=== PATIENT | male | born 1940 | race Caucasian/White ===

== ENCOUNTER 2017-11-18 02:57 | Inpatient (IN) | payer OTHER, MEDICARE ==
[~2017-11-18] VITALS: Ht 175.3 cm; Wt 109.0 kg
[2017-11-18] VITALS (9 sets, daily range): BP systolic 100–139; BP diastolic 57–69; PULSE 68–83; RESP 17–22; TEMP 98.2–98.5; O2SAT 86–97
[~2017-11-18 02:57] MED LIST: AMLO10; ASPI81; B COTAB3; CENTTAB9; PROZ20CA11
[2017-11-18] MEDS ORDERED: SODIUM CHLORIDE 0.9% FLUSH 10 ML FLUSH IV FLUSH PRN ×2 (03:15→06:30)
[2017-11-18] MEDS ORDERED: ONDANSETRON HCL 4 MG/2 ML VIAL IVP ONE (03:15)
[2017-11-18] MEDS ORDERED: FLUO1TAB3 PO (03:17)
[2017-11-18] MEDS ORDERED: GABA400C5 PO (03:17)
[2017-11-18] MEDS ORDERED: [UNRECOGNIZED DRUG - OTHER] TOPICAL (03:17)
[2017-11-18] MEDS ORDERED: AMLO10TA2 PO (03:17)
--- NOTE | 2017-11-18 03:17 | PD ---
HPI Chief Complaint: Abdominal Pain Time Seen by Provider: 03:12 Travel History International Travel<30 days: No Contact w/Intl Traveler<30days: No Traveled to known affect area: No History of Present Illness HPI 77-year-old male patient with history of COPD, presents to the ER today because he started having diffuse abdominal pain with nausea and diarrhea today. He denies any recent fevers, states he has some coughing and shortness of breath but he thinks this is COPD. He denies any other issues. Pain is currently rated at a 5 out of 10 and is stated to be achy. Modifying Factors: None Associated Signs & Symptoms: Diffuse abdominal pain, nausea, diarrhea Risk Factors: None PFSH Past Medical History Anxiety: Yes Cardiovascular Problems: Yes COPD: Yes Diminished Hearing: No Genitourinary: Yes (ENLARGED PROSTATE) Hypertension: Yes Immunizations Current: Yes Tetanus Vaccination: > 5 Years Influenza Vaccination: Yes Past Surgical History Appendectomy: Yes Tonsillectomy: Yes Social History Alcohol Use: No Tobacco Use: Yes (1 PPD) Substance Use: No Allergies-Medications (Allergen,Severity, Reaction): Coded Allergies: bacitracin (Unverified Allergy, Mild, EDEMA, 11/18/17) gramicidin D (Unverified Allergy, Mild, EDEMA, 11/18/17) neomycin (Unverified Allergy, Mild, EDEMA, 11/18/17) polymyxin B (Unverified Allergy, Mild, EDEMA, 11/18/17) Reported Meds & Prescriptions Reported Meds & Active Scripts Active Reported Tamsulosin (Tamsulosin HCl) 0.4 Mg Cap 0.4 Mg PO HS Combivent Respimat Inh (Ipratropium-Albuterol Inh) 20-100 Long-Term/Act Aero 1 Puff INH QID Atorvastatin (Atorvastatin Calcium) 40 Mg Tab 40 Mg PO HS Meloxicam 15 Mg Tab 15 Mg PO DAILY Omeprazole 20 Mg Tab 20 Mg PO DAILY Lisinopril 40 Mg Tab 40 Mg PO DAILY Gabapentin 800 Mg Tab 800 Mg PO HS Gabapentin 400 Mg Cap 400 Cap PO DAILY Fluoxetine (Fluoxetine HCl) 20 Mg Tab 20 Mg PO BID Fluorouracil Topical 2% Soln 1 Applic TOPICAL BID Apply sufficient amount to cover lesions. Use nonmetal applicator or suitable glove. Amlodipine (Amlodipine Besylate) 10 Mg Tab 10 Mg PO DAILY Review of Systems Except as stated in HPI: all other systems reviewed are Neg Physical Exam Narrative GENERAL: Well-developed elderly male patient currently in mild distress. Awake and oriented 3. SKIN: Focused skin assessment warm/dry. HEAD: Atraumatic. Normocephalic. EYES: Pupils equal and round. No scleral icterus. No injection or drainage. ENT: No nasal bleeding or discharge. Mucous membranes pink and moist. NECK: Trachea midline. No JVD. Supple. CARDIOVASCULAR: Regular rate and rhythm. No murmur appreciated. RESPIRATORY: No accessory muscle use. Clear to auscultation. Breath sounds equal bilaterally. GASTROINTESTINAL: Abdomen diffusely tender, moderately distended. Hepatic and splenic margins not palpable. MUSCULOSKELETAL: No obvious deformities. No clubbing. No cyanosis. No edema. NEUROLOGICAL: Awake and alert. No obvious cranial nerve deficits. Motor grossly within normal limits. Normal speech. PSYCHIATRIC: Appropriate mood and affect; insight and judgment normal. Data Data Last Documented VS Vital Signs Date Time Temp Pulse Resp B/P (MAP) Pulse Ox O2 Delivery O2 Flow Rate FiO2 11/18/17 03:14 22 95 Nasal Cannula 2.00 11/18/17 03:05 98.5 83 122/69 (86) Orders Orders Complete Blood Count With Diff (11/18/17 03:12) Comprehensive Metabolic Panel (11/18/17 03:12) Lipase (11/18/17 03:12) Urinalysis - C+S If Indicated (11/18/17 03:12) Ct Abd/Pel W Iv Contrast(Rout) (11/18/17 03:12) Iv Access Insert/Monitor (11/18/17 03:12) Ecg Monitoring (11/18/17 03:12) Oximetry (11/18/17 03:12) Ondansetron Inj (Zofran Inj) (11/18/17 03:15) Sodium Chloride 0.9% Flush (Ns Flush) (11/18/17 03:15) Electrocardiogram (11/18/17 03:12) Chest, Single Ap (11/18/17 03:12) Iohexol 350 Inj (Omnipaque 350 Inj) (11/18/17 04:58) Methylprednisolone So Succ Inj (Solumedr (11/18/17 05:45) Diphenhydramine Inj (Benadryl Inj) (11/18/17 05:45) Admit Order (Ed Use Only) (11/18/17 05:55) Labs Laboratory Tests Test 11/18/17 03:20 White Blood Count 13.7 TH/MM3 Red Blood Count 5.06 MIL/MM3 Hemoglobin 15.5 GM/DL Hematocrit 47.2 % Mean Corpuscular Volume 93.4 FL Mean Corpuscular Hemoglobin 30.7 PG Mean Corpuscular Hemoglobin Concent 32.9 % Red Cell Distribution Width 13.8 % Platelet Count 250 TH/MM3 Mean Platelet Volume 8.5 FL Neutrophils (%) (Auto) 83.3 % Lymphocytes (%) (Auto) 6.2 % Monocytes (%) (Auto) 8.6 % Eosinophils (%) (Auto) 1.6 % Basophils (%) (Auto) 0.3 % Neutrophils # (Auto) 11.4 TH/MM3 Lymphocytes # (Auto) 0.8 TH/MM3 Monocytes # (Auto) 1.2 TH/MM3 Eosinophils # (Auto) 0.2 TH/MM3 Basophils # (Auto) 0.0 TH/MM3 CBC Comment DIFF FINAL Differential Comment Blood Urea Nitrogen 29 MG/DL Creatinine 1.39 MG/DL Random Glucose 115 MG/DL Total Protein 7.1 GM/DL Albumin 3.6 GM/DL Calcium Level 9.2 MG/DL Alkaline Phosphatase 101 U/L Aspartate Amino Transf (AST/SGOT) 19 U/L Alanine Aminotransferase (ALT/SGPT) 29 U/L Total Bilirubin 0.7 MG/DL Sodium Level 142 MEQ/L Potassium Level 4.2 MEQ/L Chloride Level 105 MEQ/L Carbon Dioxide Level 27.7 MEQ/L Anion Gap 9 MEQ/L Estimat Glomerular Filtration Rate 50 ML/MIN Lipase 166 U/L MDM Medical Decision Making Medical Screen Exam Complete: Yes Emergency Medical Condition: Yes Medical Record Reviewed: Yes Interpretation(s) Laboratory Tests Test 11/18/17 03:20 White Blood Count 13.7 TH/MM3 (4.0-11.0) Neutrophils (%) (Auto) 83.3 % (16.0-70.0) Lymphocytes (%) (Auto) 6.2 % (9.0-44.0) Monocytes (%) (Auto) 8.6 % (0.0-8.0) Neutrophils # (Auto) 11.4 TH/MM3 (1.8-7.7) Lymphocytes # (Auto) 0.8 TH/MM3 (1.0-4.8) Monocytes # (Auto) 1.2 TH/MM3 (0-0.9) Blood Urea Nitrogen 29 MG/DL (7-18) Creatinine 1.39 MG/DL (0.60-1.30) Random Glucose 115 MG/DL (74-106) Estimat Glomerular Filtration Rate 50 ML/MIN (>89) Last 24 hours Impressions Chest X-Ray 11/18/17 0312 Signed Impressions: Service Date/Time: Saturday, November 18, 2017 03:22 - CONCLUSION: No acute disease. Eliceo Frances MD Differential Diagnosis Abdominal pain, nausea, diarrhea: Gastroenteritis versus acute obstruction versus constipation versus other acute intra-abdominal processes Narrative Course Chest x-ray did not show any signs of acute pulmonary processes. Lab work shows leukocytosis. CAT scan is showing signs of a small bowel obstruction. At this point, patient has been given IV fluids and Zofran in the ER and did not have any further vomiting episodes in the ER. He does also have a rash on his face and arm area, denies any new exposures to food or medications. It appears to be an allergic rash and slight Medrol and Benadryl was also given for this. My plan at this point would be to admit the patient for further evaluation and observation of the small bowel obstruction. Case was discussed with family practice resident service for admission. Diagnosis Primary Impression: Abdominal pain Additional Impressions: Small bowel obstruction Rash Admitting Information Admitting Physician Requests: Admit Morgan Young MD Nov 18, 2017 03:17
[2017-11-18] MEDS ORDERED: ATOR40TA16 PO (03:19)
[2017-11-18] MEDS ORDERED: OMEP20TA93 PO (03:19)
[2017-11-18] MEDS ORDERED: LISI40TA PO (03:19)
[2017-11-18] MEDS ORDERED: MELO15TA20 PO (03:19)
[2017-11-18] MEDS ORDERED: GABA800T PO (03:19)
[2017-11-18] MEDS ORDERED: TAMS0.4C4 PO (03:19)
[2017-11-18] MEDS ORDERED: IPRAAER INH (03:19)
--- NOTE | 2017-11-18 03:47 | RADRPT ---
EXAM DATE/TIME: 11/18/2017 03:22 [facility] COMPARISON: No previous studies available for comparison. INDICATIONS : Free air. MEDICAL HISTORY : Chronic obstructive pulmonary disease. Hypertension SURGICAL HISTORY : Left shoulder. ENCOUNTER: Initial ACUITY: 1 day PAIN SCORE: 0/10 LOCATION: Bilateral chest FINDINGS: A single view of the chest demonstrates the lungs to be symmetrically aerated without evidence of mas s, infiltrate or effusion. The cardiomediastinal contours are unremarkable. There is a left shoulder prosthesis present.. CONCLUSION: No acute disease. Eliceo Frances MD on November 18, 2017 at 3:45 Board Certified Radiologist. This report was verified electronically.
[2017-11-18 03:58] LABS: AUTOMATED NEUTROPHIL # 11.4 TH/MM3 (1.8-7.7); BASOPHIL % 0.3 % (0.0-2.0); EOSINOPHIL # 0.2 TH/MM3 (0-0.4); EOSINOPHIL % 1.6 % (0.0-4.0); HEMATOCRIT 47.2 % (39.0-51.0); HEMOGLOBIN 15.5 GM/DL (13.0-17.0); LYMPH % 6.2 % (9.0-44.0); LYMPHOCYTE # 0.8 TH/MM3 (1.0-4.8); MEAN CELL VOLUME 93.4 FL (80.0-100.0); MEAN CORPUSCULAR HEMOGLOBIN 30.7 PG (27.0-34.0); MEAN CORPUSCULAR HGB CONC 32.9 % (32.0-36.0); MEAN PLATELET VOLUME 8.5 FL (7.0-11.0); MONO % 8.6 % (0.0-8.0); MONOCYTE # 1.2 TH/MM3 (0-0.9); NEUT % 83.3 % (16.0-70.0); PLATELET COUNT 250 TH/MM3 (150-450); RED BLOOD COUNT 5.06 MIL/MM3 (4.50-5.90); RED CELL DISTRIBUTION WIDTH 13.8 % (11.6-17.2); WHITE BLOOD COUNT 13.7 TH/MM3 (4.0-11.0)
[2017-11-18 04:31] LABS: ALBUMIN 3.6 GM/DL (3.4-5.0); AST (GOT) 19 U/L (15-37); BICARBONATE 27.7 MEQ/L (21.0-32.0); BLOOD UREA NITROGEN 29 MG/DL (7-18); CALCIUM 9.2 MG/DL (8.5-10.1); CHLORIDE 105 MEQ/L (98-107); CREATININE 1.39 MG/DL (0.60-1.30); GLOMERULAR FILTRATION RATE 50 ML/MIN (>89); GLUCOSE,RANDOM 115 MG/DL (74-106); LIPASE 166 U/L (73-393); SODIUM (NA) 142 MEQ/L (136-145)
[2017-11-18 04:32] LABS: ALT (GPT) 29 U/L (12-78)
[2017-11-18 04:34] LABS: ALKALINE PHOSPHATASE 101 U/L (45-117); TOTAL BILIRUBIN ADULT 0.7 MG/DL (0.2-1.0); TOTAL PROTEIN 7.1 GM/DL (6.4-8.2)
[2017-11-18] MEDS ORDERED: IOHEXOL 350 MG/ML 10 ML VIAL (for RAD DIAG) IVCONTRAST ONE (04:58)
--- NOTE | 2017-11-18 05:41 | RADRPT ---
EXAM DATE/TIME: 11/18/2017 05:07 [facility] COMPARISON: No previous studies available for comparison. INDICATIONS : Abdominal pain. IV CONTRAST: 96 cc Omnipaque 350 (iohexol) IV ORAL CONTRAST: No oral contrast ingested. RADIATION DOSE: 16.74 CTDIvol (mGy) MEDICAL HISTORY : Hypertension. Chronic obstructive pulmonary disease. Cardiovascular disease SURGICAL HISTORY : Appendectomy. ENCOUNTER: Initial ACUITY: 1 day PAIN SCALE: 6/10 LOCATION: abdomen TECHNIQUE: Volumetric scanning of the abdomen and pelvis was performed. Using automated exposure control and ad justment of the mA and/or kV according to patient size, radiation dose was kept as low as reasonably achievable to obtain optimal diagnostic quality images. DICOM format image data is available electro nically for review and comparison. FINDINGS: LOWER LUNGS: There is consolidation or atelectasis seen at the posterior medial right lower lung. LIVER: Homogeneous density without lesion. There is no dilation of the biliary tree. No calcified gallston es. SPLEEN: Normal size without lesion. PANCREAS: Within normal limits. KIDNEYS: Normal in size and shape. There is no mass or hydronephrosis. There is a 4 mm nonobstructing left re nal stone. ADRENAL GLANDS: Within normal limits. VASCULAR: There is no aortic aneurysm. BOWEL/MESENTERY: There is dilatation of the proximal small bowel measuring up to 4 cm. There is transition from dilate d small bowel to decompressed small bowel in the right lower quadrant. The small bowel appears to ivonne nge in caliber over at least 10 cm. A focal mass or focal transition point is not seen. There is scat tered colonic diverticula. ABDOMINAL WALL: Within normal limits. RETROPERITONEUM: There is no lymphadenopathy. BLADDER: No wall thickening or mass. REPRODUCTIVE: The prostate is enlarged. Prostatic calcifications are present. INGUINAL: There is no lymphadenopathy or hernia. MUSCULOSKELETAL: Surgical hardware is seen at the left proximal femur. There is degenerative change of the lumbar spin e. There is a focal chondroid lesion seen in the proximal right femur likely related to trauma. CONCLUSION: 1. Dilated proximal and mid small bowel with a elongated area of transition in the right lower quadra nt to decompressed distal small bowel. Some degree of obstruction at this levelsuspected. 2. Right lower lobe consolidation or atelectasis. 3. Nonobstructing 4 mm left renal stone. 4. Chronic bony changes as described above. Eliceo Frances MD on November 18, 2017 at 5:31 Board Certified Radiologist. This report was verified electronically.
[2017-11-18] MEDS ORDERED: diphenhydrAMINE HCL 50 MG/ML VIAL IV PUSH ONE (05:45)
[2017-11-18] MEDS ORDERED: methylPREDNISolone SOD SUCC 125 MG/2 ML VIAL IV PUSH ONE (05:45)
[2017-11-18] MEDS ORDERED: MORPHINE SULFATE 2 MG/ML INJ IV PUSH PRN ×2 (06:30)
[2017-11-18] MEDS ORDERED: SENNOSIDES 8.6 MG TAB PO PRN (06:30)
[2017-11-18] MEDS ORDERED: RESP: ALBUTEROL 2.5 MG/IPRATROPIUM 0.5 MG NEB (PRN) NEB (06:30)
[2017-11-18] MEDS ORDERED: LACTULOSE SYRUP 20 GM/30 ML CUP PO PRN (06:30)
[2017-11-18] MEDS ORDERED: BISACODYL 10 MG SUPP RECTAL PRN (06:30)
[2017-11-18] MEDS ORDERED: MAGNESIUM HYDROXIDE SUSP 30 ML CUP PO PRN (06:30)
[2017-11-18] MEDS ORDERED: ONDANSETRON HCL 4 MG/2 ML VIAL IVP PRN (06:30)
[2017-11-18] MEDS: LEVOFLOXACIN 750 MG PREMIX INJ 150 ML IV SCH (06:52)
[2017-11-18] MEDS: SODIUM CHLORIDE 0.9% FLUSH 10 ML FLUSH IV FLUSH SCH ×2 (09:00→21:12)
[2017-11-18] MEDS: DOCUSATE SODIUM 50 MG/SENNA 8.6 MG TAB PO SCH ×2 (09:00→21:00)
[2017-11-18] MEDS: BUDESONIDE-FORMOTEROL 160/4.5 MCG INHALER INH SCH ×2 (09:00→21:00)
[2017-11-18] MEDS: SODIUM CHLOR 0.9% 1000 ML INJ 1,000 ML IV SCH ×3 (11:02→21:11)
--- NOTE | 2017-11-18 12:01 | EKG ---
Date Performed: 11/18/2017 Time Performed: 03:41:53 PTAGE: 77 years EKG: Sinus rhythm MARKED LEFT AXIS DEVIATION INCOMPLETE RIGHT BUNDLE BRANCH BLOCK ABNORMAL ECG NO PREVIOUS TRACING DOCTOR: Blue Mclaughlin Interpretating Date/Time 11/18/2017 12:00:22
--- NOTE | 2017-11-18 14:39 | HHI.HP ---
HPI Service [facility] Hospitalists Primary Care Physician No Primary Care Physician Admission Diagnosis small bowel obstruction Diagnoses: Chief Complaint: Abdominal pain Travel History International Travel<30 Days: No Contact w/Intl Traveler <30 Da: No Traveled to Known Affected Are: No History of Present Illness This is a 77-year-old male with past medical history significant for COPD, hypertension, hyperlipidemia, mononeuropathy who presents to [facility] complaining of sudden onset of abdominal pain after a "squirt" of diarrhea. The patient states that he felt nauseous but denies vomiting, denies fevers, chills. States that pain was constant and located in the upper abdomen , nonradiating. The patient also complains of a rash which started 3 days prior to his abdominal pain on the upper extremities and his trunk. Patient states the rash is very itchy. She also complains of some coughing and shortness of breath but he thinks this is due to the COPD. Please note that the patient is somewhat a poor historian. Pain at the moment is almost completely resolved. Review of Systems As per history of present illness, other systems reviewed and negative. Past Family Social History Past Medical History COPD. Anxiety. Hypertension. BPH Hyperlipidemia Neuropathy Past Surgical History Appendectomy Tonsillectomy Left shoulder surgery Left pelvic fracture repair Right hand surgery for carpal tunnel syndrome or tennis elbow. Cystoscopy and colonoscopy. Reported Medications Reported Meds & Active Scripts Active Reported Tamsulosin (Tamsulosin HCl) 0.4 Mg Cap 0.4 Mg PO HS Combivent Respimat Inh (Ipratropium-Albuterol Inh) 20-100 Mcfp/Act Aero 1 Puff INH QID Atorvastatin (Atorvastatin Calcium) 40 Mg Tab 40 Mg PO HS Meloxicam 15 Mg Tab 15 Mg PO DAILY Omeprazole 20 Mg Tab 20 Mg PO DAILY Lisinopril 40 Mg Tab 40 Mg PO DAILY Gabapentin 800 Mg Tab 800 Mg PO HS Gabapentin 400 Mg Cap 400 Cap PO DAILY Fluoxetine (Fluoxetine HCl) 20 Mg Tab 20 Mg PO BID Fluorouracil Topical 2% Soln 1 Applic TOPICAL BID Apply sufficient amount to cover lesions. Use nonmetal applicator or suitable glove. Amlodipine (Amlodipine Besylate) 10 Mg Tab 10 Mg PO DAILY Allergies: Coded Allergies: bacitracin (Unverified Allergy, Mild, EDEMA, 11/18/17) gramicidin D (Unverified Allergy, Mild, EDEMA, 11/18/17) neomycin (Unverified Allergy, Mild, EDEMA, 11/18/17) polymyxin B (Unverified Allergy, Mild, EDEMA, 11/18/17) Active Ordered Medications Current Medications Medications (Trade) Dose Ordered Sig/Daniel Route Start Time Stop Time Status Last Admin (Symbicort 160-4.5 Mcg Inh) 2 puff Q12HR INH 11/18/17 09:00 (Duoneb Neb) 1 ampule Q4HR NEB PRN NEB 11/18/17 06:30 Levofloxacin/ Dextrose 150 ml @ 100 mls/hr DAILY@0600 IV 11/18/17 06:30 11/18/17 06:52 Sodium Chloride 1,000 ml @ 100 mls/hr Q10H IV 11/18/17 06:17 11/18/17 11:02 (NS Flush) 2 ml UNSCH PRN IV FLUSH 11/18/17 06:30 (NS Flush) 2 ml BID IV FLUSH 11/18/17 09:00 11/18/17 09:00 (Zofran Inj) 4 mg Q6H PRN IVP 11/18/17 06:30 (Morphine Inj) 1 mg Q3H PRN IV PUSH 11/18/17 06:30 (Morphine Inj) 2 mg Q3H PRN IV PUSH 11/18/17 06:30 (Alyx-Colace) 1 tab BID PO 11/18/17 09:00 (Milk Of Magnesia Liq) 30 ml Q12H PRN PO 11/18/17 06:30 (Senokot) 17.2 mg Q12H PRN PO 11/18/17 06:30 (Dulcolax Supp) 10 mg DAILY PRN RECTAL 11/18/17 06:30 (Lactulose Liq) 30 ml DAILY PRN PO 11/18/17 06:30 Family History Mother from cancer. Father from stroke. Social History The patient's a former smoker quit smoking in 2011. The patient does not currently drink alcohol, however states he abused alcohol in the past. Physical Exam Vital Signs Vital Signs Date Time Temp Pulse Resp B/P (MAP) Pulse Ox O2 Delivery O2 Flow Rate FiO2 11/18/17 12:32 98.2 68 20 100/67 (78) 95 11/18/17 08:16 11/18/17 07:17 78 17 137/57 (83) 97 Nasal Cannula 4.00 11/18/17 06:38 83 20 138/63 (88) 96 Nasal Cannula 4.00 11/18/17 03:14 22 95 Nasal Cannula 2.00 11/18/17 03:05 98.5 83 20 122/69 (86) 94 Physical Exam GENERAL: This is a well-nourished, well-developed patient, in no apparent distress. SKIN: ecchymoses or lesions. Cool and dry. There is a macular rash in the upper extremities and trunk and upper part of bilateral lower extremities. There is also a erythematous scaly rash in the patient's face. Patient also has an erythematous rash on BL feet above the ankle and in the dorsal part of BL foot. HEAD: Atraumatic. Normocephalic. No temporal or scalp tenderness. EYES: Pupils equal round and reactive. Extraocular motions intact. No scleral icterus. No injection or drainage. ENT: Nose without bleeding, purulent drainage or septal hematoma. Throat without erythema, tonsillar hypertrophy or exudate. Uvula midline. Airway patent. NECK: Trachea midline. No JVD or lymphadenopathy. Supple, nontender, no meningeal signs. CARDIOVASCULAR: Regular rate and rhythm without murmurs, gallops, or rubs. RESPIRATORY: Clear to auscultation. Breath sounds equal bilaterally. No wheezes , rales, or rhonchi. GASTROINTESTINAL: Abdomen soft, moderately tender to palpation on the upper abdomen involving the right upper quadrant, epigastrium and left upper quadrant. , Ali distended. No hepato-splenomegaly, or palpable masses. No guarding. MUSCULOSKELETAL: Extremities without clubbing, cyanosis, or edema. No joint tenderness, effusion, or edema noted. No calf tenderness. Negative Homans sign bilaterally. NEUROLOGICAL: Awake and alert. Cranial nerves II through XII intact. Motor and sensory grossly within normal limits. Five out of 5 muscle strength in all muscle groups. Normal speech. Laboratory Laboratory Tests Test 11/18/17 03:20 White Blood Count 13.7 Red Blood Count 5.06 Hemoglobin 15.5 Hematocrit 47.2 Mean Corpuscular Volume 93.4 Mean Corpuscular Hemoglobin 30.7 Mean Corpuscular Hemoglobin Concent 32.9 Red Cell Distribution Width 13.8 Platelet Count 250 Mean Platelet Volume 8.5 Neutrophils (%) (Auto) 83.3 Lymphocytes (%) (Auto) 6.2 Monocytes (%) (Auto) 8.6 Eosinophils (%) (Auto) 1.6 Basophils (%) (Auto) 0.3 Neutrophils # (Auto) 11.4 Lymphocytes # (Auto) 0.8 Monocytes # (Auto) 1.2 Eosinophils # (Auto) 0.2 Basophils # (Auto) 0.0 CBC Comment DIFF FINAL Differential Comment Blood Urea Nitrogen 29 Creatinine 1.39 Random Glucose 115 Total Protein 7.1 Albumin 3.6 Calcium Level 9.2 Alkaline Phosphatase 101 Aspartate Amino Transf (AST/SGOT) 19 Alanine Aminotransferase (ALT/SGPT) 29 Total Bilirubin 0.7 Sodium Level 142 Potassium Level 4.2 Chloride Level 105 Carbon Dioxide Level 27.7 Anion Gap 9 Estimat Glomerular Filtration Rate 50 Lipase 166 Result Diagram: 11/18/17 0320 11/18/17 032 Imaging Last Impressions Chest X-Ray 11/18/17311 Signed Impressions: Service Date/Time: Saturday, November 18, 2017 03:22 - CONCLUSION: No acute disease. Eliceo Frances MD Abdomen/Pelvis CT 11/18/17311 Signed Impressions: Service Date/Time: Saturday, November 18, 2017 05:07 - CONCLUSION: 1. Dilated proximal and mid small bowel with a elongated area of transition in the right lower quadrant to decompressed distal small bowel. Some degree of obstruction at this levelsuspected. 2. Right lower lobe consolidation or atelectasis. 3. Nonobstructing 4 mm left renal stone. 4. Chronic bony changes as described above. Eliceo Frances MD Reviewed by me. Caprini VTE Risk Assessment Caprini VTE Risk Assessment: Mod/High Risk (score >= 2) Caprini Risk Assessment Model Point Value = 1 Point Value = 2 Point Value = 3 Point Value = 5 Age 41-60 Minor surgery BMI > 25 kg/m2 Swollen legs Varicose veins or History of unexplained or recurrent spontaneous Oral contraceptives or hormone replacement Sepsis (< 1 month) Serious lung disease, including pneumonia (< 1 month) Abnormal pulmonary function Acute myocardial infarction Congestive heart failure (< 1 month) History of inflammatory bowel disease Medical patient at bed rest Age 61-74 Arthroscopic surgery Major open surgery (> 45 min) Laparoscopic surgery (> 45 min) Malignancy Confined to bed (> 72 hours) Immobilizing plaster cast Central venous access Age >= 75 History of VTE Family history of VTE Factor V Leiden Prothrombin [id number] Lupus anticoagulant Anticardiolipin antibodies Elevated serum homocysteine Heparin-induced thrombocytopenia Other congenital or acquired thrombophilia Stroke (< 1 month) Elective arthroplasty Hip, pelvis, or leg fracture Acute spinal cord injury (< 1 month) Prophylaxis Regimen Total Risk Factor Score Risk Level Prophylaxis Regimen 0-1 Low Early ambulation 2 Moderate Order ONE of the following: *Sequential Compression Device (SCD) *Heparin 5000 units SQ BID 3-4 Higher Order ONE of the following medications: *Heparin 5000 units SQ TID *Enoxaparin/Lovenox 40 mg SQ daily (WT < 150 kg, CrCl > 30 mL/min) *Enoxaparin/Lovenox 30 mg SQ daily (WT < 150 kg, CrCl > 10-29 mL/min) *Enoxaparin/Lovenox 30 mg SQ BID (WT < 150 kg, CrCl > 30 mL/min) AND/OR *Sequential Compression Device (SCD) 5 or more Highest Order ONE of the following medications: *Heparin 5000 units SQ TID (Preferred with Epidurals) *Enoxaparin/Lovenox 40 mg SQ daily (WT < 150 kg, CrCl > 30 mL/min) *Enoxaparin/Lovenox 30 mg SQ daily (WT < 150 kg, CrCl > 10-29 mL/min) *Enoxaparin/Lovenox 30 mg SQ BID (WT < 150 kg, CrCl > 30 mL/min) AND *Sequential Compression Device (SCD) Assessment and Plan Problem List: (1) Abdominal pain ICD Code: R10.9 - Unspecified abdominal pain Status: Acute Plan: Admit the patient to the medical floor, continue pain control with IV morphine. Surgery consult pending. The bowel regimen Diet as per surgery. (2) Small bowel obstruction ICD Code: K56.609 - Unspecified intestinal obstruction, unspecified as to partial versus complete obstruction Status: Acute Plan: DT abdomen and pelvis showed dilated proximal and mid small bowel with elongated area of transition in the right lower quadrant to the compressed distal small bowel. Some degree of obstruction at this level suspected. There was also from a right lower lobe consolidation or atelectasis. Obstructing 4 mm renal stone the left. Chronic bony changes. Continue pain control as above Surgery consulted, recommendations pending. Continue bowel regimen. (3) Rash ICD Code: R21 - Rash and other nonspecific skin eruption Status: Acute Plan: Rash in the face likely seven-day to seborrheic dermatitis. Will prescribe a corticosteroid cream. Rash in the upper extremities and trunk as well as lower extremities seems to be allergic in nature. The patient states that recently he moved to an assisted living facility so he is getting different foot than what he used to get. Denies any new medications. She was given IV Solu-Medrol and Benadryl in the ER. I will start the patient a prednisone taper and also prescribed Benadryl as needed for itching. (4) Community acquired pneumonia ICD Code: J18.9 - Pneumonia, unspecified organism Plan: Chest x-ray without any acute disease - reviewed by me. The abdomen and pelvis showed a right lower lobe consolidation. Given the patient has history of COPD, shortness of breath as well as leukocytosis I will treat empirically with IV Levaquin. (5) COPD (chronic obstructive pulmonary disease) ICD Code: J44.9 - Chronic obstructive pulmonary disease, unspecified Plan: There is no wheezing on exam. Seems to be stable. Mary Symbicort. Place on DuoNeb treatments. (6) HTN (hypertension) ICD Code: I10 - Essential (primary) hypertension Plan: Blood pressure seems to be stable, continue amlodipine and lisinopril. 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 This likely secondary to alcoholic neuropathy since the patient has history of alcohol abuse. I will continue gabapentin. (8) Depression ICD Code: F32.9 - Major depressive disorder, single episode, unspecified Plan: Seems stable. Continue Fluoxetine. Assessment and Plan DVT prophylaxis - SCD's, heparin SQ PPI prophylaxis: PPI Discussed Condition With Patient Physician Certification 2 Midnight Certification Type: Admission for Inpatient Services Order for Inpatient Services The services are ordered in accordance with Medicare regulations or non- Medicare payer requirements, as applicable. In the case of services not specified as inpatient-only, they are appropriately provided as inpatient services in accordance with the 2-midnight benchmark. Estimated LOS (days): 2 days is the estimated time the patient will need to remain in the hospital, assuming treatment plan goals are met and no additional complications. Post-Hospital Plan: Not yet determined Problem Qualifiers (1) Abdominal pain: Qualified Codes: R10.84 - Generalized abdominal pain (2) COPD (chronic obstructive pulmonary disease): Qualified Codes: J41.0 - Simple chronic bronchitis (3) HTN (hypertension): Qualified Codes: I10 - Essential (primary) hypertension (4) Depression: Qualified Codes: F32.9 - Major depressive disorder, single episode, unspecified Wesley Almazan MD Nov 18, 2017 14:39
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
[2017-11-18] MEDS: predniSONE 20 MG TAB PO SCH (21:00)
[2017-11-18] MEDS: ATORVASTATIN 40 MG TAB PO SCH (21:00)
[2017-11-18] MEDS: FLUOROURACIL TOPICAL SCH (21:00)
[2017-11-18] MEDS: FLUoxetine HCL 20 MG CAP PO SCH (21:00)
[2017-11-18] MEDS: TAMSULOSIN HCL 0.4 MG CAP PO SCH (21:00)
[2017-11-18] MEDS: GABAPENTIN 400 MG CAP PO SCH (21:00)
[2017-11-19 03:34] VITALS: BP 138/64; PULSE 68; RESP 18; TEMP 98.1; O2SAT 95
[2017-11-19 05:12] LABS: AUTOMATED NEUTROPHIL # 9.3 TH/MM3 (1.8-7.7); BASOPHIL % 0.2 % (0.0-2.0); HEMATOCRIT 40.4 % (39.0-51.0); HEMOGLOBIN 13.6 GM/DL (13.0-17.0); LYMPHOCYTE # 0.9 TH/MM3 (1.0-4.8); MEAN CELL VOLUME 93.3 FL (80.0-100.0); MEAN CORPUSCULAR HEMOGLOBIN 31.3 PG (27.0-34.0); MEAN CORPUSCULAR HGB CONC 33.6 % (32.0-36.0); MEAN PLATELET VOLUME 8.3 FL (7.0-11.0); MONO % 9.3 % (0.0-8.0); MONOCYTE # 1.1 TH/MM3 (0-0.9); NEUT % 82.5 % (16.0-70.0); PLATELET COUNT 210 TH/MM3 (150-450); RED BLOOD COUNT 4.33 MIL/MM3 (4.50-5.90); RED CELL DISTRIBUTION WIDTH 13.9 % (11.6-17.2); WHITE BLOOD COUNT 11.3 TH/MM3 (4.0-11.0)
[2017-11-19 05:40] LABS: ALBUMIN 3.1 GM/DL (3.4-5.0); ALT (GPT) 25 U/L (12-78); AST (GOT) 16 U/L (15-37); BICARBONATE 28.5 MEQ/L (21.0-32.0); BLOOD UREA NITROGEN 29 MG/DL (7-18); CALCIUM 8.4 MG/DL (8.5-10.1); CHLORIDE 110 MEQ/L (98-107); CREATININE 1.12 MG/DL (0.60-1.30); GLOMERULAR FILTRATION RATE 64 ML/MIN (>89); GLUCOSE,RANDOM 100 MG/DL (74-106); SODIUM (NA) 145 MEQ/L (136-145)
[2017-11-19 05:43] LABS: ALKALINE PHOSPHATASE 85 U/L (45-117); TOTAL BILIRUBIN ADULT 0.4 MG/DL (0.2-1.0); TOTAL PROTEIN 6.4 GM/DL (6.4-8.2)
[2017-11-19] MEDS: LEVOFLOXACIN 750 MG PREMIX INJ 150 ML IV SCH (05:56)
[2017-11-19] MEDS: SODIUM CHLOR 0.9% 1000 ML INJ 1,000 ML IV SCH ×2 (05:56→22:17)
[2017-11-19 08:00] VITALS: BP 127/59; PULSE 69; RESP 20; TEMP 95.9; O2SAT 95
--- NOTE | 2017-11-19 08:54 | RADRPT ---
EXAM DATE/TIME: 11/19/2017 07:39 [facility] COMPARISON: CT ABDOMEN & PELVIS W CONTRAST, November 18, 2017, 5:07. INDICATIONS : Evaluate for small bowel obstrustion. Constipated for two days. MEDICAL HISTORY : Chronic obstructive pulmonary disease. Hypertension SURGICAL HISTORY : None. ENCOUNTER: Subsequent ACUITY: 2 days PAIN SCORE: 4/10 LOCATION: Left lower quadrant FINDINGS: The bowel gas pattern has improved from yesterday's CT exam. Several loops of slightly distended smal l bowel are noted in the right upper quadrant. Air and stool seen throughout the colon. There is no f ree air or pneumatosis. Remainder of the exam is unchanged. CONCLUSION: 1. Improved bowel gas pattern in this patient with partial small bowel obstruction on CT exam. Robin Jackson MD on November 19, 2017 at 8:47 Board Certified Radiologist. This report was verified electronically.
[2017-11-19] MEDS: SODIUM CHLORIDE 0.9% FLUSH 10 ML FLUSH IV FLUSH SCH ×2 (09:00→21:00)
[2017-11-19] MEDS: FLUOROURACIL TOPICAL SCH ×2 (09:00→21:00)
[2017-11-19] MEDS ORDERED: GABAPENTIN 400 MG CAP PO SCH (09:00)
--- NOTE | 2017-11-19 10:15 | PD.PN.STU ---
Subjective Remarks patient is a 77 y/o male w/ h/o COPD, hyperlipidemia, hypertension, BPH, mononeuropathy, anxiety, and hiatal hernia who is on hospital day 2 who was admitted for possible bowel obstruction. Patient presented to ED with diffuse abdominal pain after one episode of nausea and diarrhea as well as a truncal rash. CT of abdomen and pelvis 11/18 revealed dilated proximal and mid small bowel with a elongated area of transition in the right lower quadrant to decompressed distal small bowel. Some degree of obstruction at this level suspected. Today patient reports rash is getting better and he is passing flatus. He reports diffuse abdominal discomfort. He denies any bowel movement, sob, cough, chest pain, fever, chills, or nausea/vomiting Objective Vitals Vital Signs Date Time Temp Pulse Resp B/P (MAP) Pulse Ox O2 Delivery O2 Flow Rate FiO2 11/19/17 08:00 95.9 69 20 127/59 (81) 95 11/19/17 03:34 98.1 68 18 138/64 (88) 95 11/18/17 23:39 98.5 71 18 126/58 (80) 97 11/18/17 22:54 95 Nasal Cannula 2.00 11/18/17 20:02 98.2 78 18 139/66 (90) 86 11/18/17 16:49 98.2 80 18 138/65 (89) 95 11/18/17 12:32 98.2 68 20 100/67 (78) 95 I/O 11/18/17 11/18/17 11/18/17 11/19/17 11/19/17 11/19/17 07:00 15:00 23:00 07:00 15:00 23:00 Intake Total 120 ml Output Total 250 ml 800 ml 325 ml Balance -130 ml -800 ml -325 ml Intake IV Total 120 ml Output Urine Total 250 ml 800 ml 325 ml # Voids 0 Result Diagram: 11/19/17 0406 11/19/17 0406 Other Results Allergies Coded Allergies Type Severity Reaction Last Updated Verified bacitracin Allergy Mild EDEMA 11/18/17 No gramicidin D Allergy Mild EDEMA 11/18/17 No neomycin Allergy Mild EDEMA 11/18/17 No polymyxin B Allergy Mild EDEMA 11/18/17 No Recent Impressions Abdomen X-Ray 11/19/17 0700 Signed Impressions: Service Date/Time: Sunday, November 19, 2017 07:39 - CONCLUSION: 1. Improved bowel gas pattern in this patient with partial small bowel obstruction on CT exam. Robin Jackson MD Chest X-Ray 11/18/17311 Signed Impressions: Service Date/Time: Saturday, November 18, 2017 03:22 - CONCLUSION: No acute disease. Eliceo Frances MD Abdomen/Pelvis CT 11/18/17311 Signed Impressions: Service Date/Time: Saturday, November 18, 2017 05:07 - CONCLUSION: 1. Dilated proximal and mid small bowel with a elongated area of transition in the right lower quadrant to decompressed distal small bowel. Some degree of obstruction at this levelsuspected. 2. Right lower lobe consolidation or atelectasis. 3. Nonobstructing 4 mm left renal stone. 4. Chronic bony changes as described above. Eliceo Frances MD 11/17/17 11/17/17 11/18/17 11/18/17 11/19/17 11/19/17 06:00 18:00 06:00 18:00 06:00 18:00 Intake Total 120 ml Output Total 250 ml 1125 ml Balance -130 ml -1125 ml Intake IV Total 120 ml Output Urine Total 250 ml 1125 ml # Voids 0 Laboratory Tests Test 11/18/17 03:20 11/19/17 04:06 White Blood Count 13.7 TH/MM3 11.3 TH/MM3 Red Blood Count 5.06 MIL/MM3 4.33 MIL/MM3 Hemoglobin 15.5 GM/DL 13.6 GM/DL Hematocrit 47.2 % 40.4 % Mean Corpuscular Volume 93.4 FL 93.3 FL Mean Corpuscular Hemoglobin 30.7 PG 31.3 PG Mean Corpuscular Hemoglobin Concent 32.9 % 33.6 % Red Cell Distribution Width 13.8 % 13.9 % Platelet Count 250 TH/MM3 210 TH/MM3 Mean Platelet Volume 8.5 FL 8.3 FL Neutrophils (%) (Auto) 83.3 % 82.5 % Lymphocytes (%) (Auto) 6.2 % 8.0 % Monocytes (%) (Auto) 8.6 % 9.3 % Eosinophils (%) (Auto) 1.6 % 0.0 % Basophils (%) (Auto) 0.3 % 0.2 % Neutrophils # (Auto) 11.4 TH/MM3 9.3 TH/MM3 Lymphocytes # (Auto) 0.8 TH/MM3 0.9 TH/MM3 Monocytes # (Auto) 1.2 TH/MM3 1.1 TH/MM3 Eosinophils # (Auto) 0.2 TH/MM3 0.0 TH/MM3 Basophils # (Auto) 0.0 TH/MM3 0.0 TH/MM3 CBC Comment DIFF FINAL DIFF FINAL Differential Comment Blood Urea Nitrogen 29 MG/DL 29 MG/DL Creatinine 1.39 MG/DL 1.12 MG/DL Random Glucose 115 MG/DL 100 MG/DL Total Protein 7.1 GM/DL 6.4 GM/DL Albumin 3.6 GM/DL 3.1 GM/DL Calcium Level 9.2 MG/DL 8.4 MG/DL Alkaline Phosphatase 101 U/L 85 U/L Aspartate Amino Transf (AST/SGOT) 19 U/L 16 U/L Alanine Aminotransferase (ALT/SGPT) 29 U/L 25 U/L Total Bilirubin 0.7 MG/DL 0.4 MG/DL Sodium Level 142 MEQ/L 145 MEQ/L Potassium Level 4.2 MEQ/L 4.2 MEQ/L Chloride Level 105 MEQ/L 110 MEQ/L Carbon Dioxide Level 27.7 MEQ/L 28.5 MEQ/L Anion Gap 9 MEQ/L 7 MEQ/L Estimat Glomerular Filtration Rate 50 ML/MIN 64 ML/MIN Lipase 166 U/L Orders Procedure Category Date Status Time Complete Blood Count LAB 11/18/17 Complete With Diff 03:12 Comprehensive LAB 11/18/17 Complete Metabolic Panel 03:12 Lipase LAB 11/18/17 Complete 03:12 Urinalysis - C+S If LAB 11/18/17 In Process Indicated 03:12 Ct Abd/Pel W Iv RADCT 11/18/17 Resulted Contrast(Rout) 03:12 Iv Access TX 11/18/17 Transmitted Insert/Monitor 03:12 Ecg Monitoring TX 11/18/17 Transmitted 03:12 Oximetry TX 11/18/17 Transmitted 03:12 Ondansetron Inj MED 11/18/17 Complete (Zofran Inj) 03:15 Sodium Chloride 0.9% MED 11/18/17 Complete Flush (Ns Flush) 03:15 Electrocardiogram CAV 11/18/17 Resulted 03:12 Chest, Single Ap RADDIAG 11/18/17 Resulted 03:12 Iohexol 350 Inj MED 11/18/17 Complete (Omnipaque 350 Inj) 04:58 Methylprednisolone So MED 11/18/17 Complete Succ Inj (Solumedr 05:45 Diphenhydramine Inj MED 11/18/17 Complete (Benadryl Inj) 05:45 Admit Order (Ed Use ADMITTING 11/18/17 Transmitted Only) 05:55 Physician Name Changes ADMITTING 11/18/17 Transmitted Admit To Inpatient ADMITTING 11/18/17 Transmitted Inpatient ADMITTING 11/18/17 Transmitted Certification Budeson-Formot MED 11/18/17 In Process 160-4.5 Mcg Inh 09:00 Albuterol-Ipratropium MED 11/18/17 In Process Neb (Duoneb Neb) 06:30 Levofloxacin 750 Mg MED 11/18/17 In Process Premix Inj (Levaquin 06:30 Consult General CONS 11/18/17 Transmitted Surgery Vital Signs (Adult) SIN 11/18/17 In Process 06:17 Activity Oob Ad Kristen SIN 11/18/17 In Process 06:17 Intake + Output SIN 11/18/17 In Process 06:17 Diet Npo DIET 11/18/17 Transmitted Breakfast Sodium Chlor 0.9% MED 11/18/17 In Process 1000 Ml Inj (Ns 1000 M 06:17 Sodium Chloride 0.9% MED 11/18/17 In Process Flush (Ns Flush) 06:30 Sodium Chloride 0.9% MED 11/18/17 In Process Flush (Ns Flush) 09:00 Ondansetron Inj MED 11/18/17 In Process (Zofran Inj) 06:30 Comprehensive LAB 11/19/17 Complete Metabolic Panel 06:00 Complete Blood Count LAB 11/19/17 Complete With Diff 06:00 Scd Bilateral/Knee SIN 11/18/17 In Process High 06:17 Avery Bilateral/Knee SIN 11/18/17 In Process High 06:30 Morphine Inj MED 11/18/17 In Process (Morphine Inj) 06:30 Morphine Inj MED 11/18/17 In Process (Morphine Inj) 06:30 Docusate Sodium-Senna MED 11/18/17 In Process (Alyx-Colace) 09:00 Magnesium Hydroxide MED 11/18/17 In Process Liq (Milk Of Magnesi 06:30 Sennosides (Senokot) MED 11/18/17 In Process 06:30 Bisacodyl Supp MED 11/18/17 In Process (Dulcolax Supp) 06:30 Lactulose Liq MED 11/18/17 In Process (Lactulose Liq) 06:30 Physician Name Changes ADMITTING 11/18/17 Transmitted (Hub Use Only)Inp Phy CONS 11/18/17 Transmitted Cons/Ref Patient Transfer ADMITTING 11/18/17 Transmitted Consult Flora Nfs CONS 11/18/17 Transmitted Abdomen, Kub Only RADDIAG 11/19/17 Resulted 07:00 Amlodipine (Norvasc) MED 11/19/17 In Process 09:00 Atorvastatin (Lipitor) MED 11/18/17 In Process 21:00 Fluoxetine (Prozac) MED 11/18/17 In Process 21:00 Gabapentin (Neurontin) MED 11/19/17 In Process 09:00 Gabapentin (Neurontin) MED 11/18/17 In Process 21:00 Tamsulosin (Flomax) MED 11/18/17 In Process 21:00 Patient Own Medication MED 11/18/17 In Process 21:00 Lisinopril (Prinivil) MED 11/19/17 In Process 09:00 Pantoprazole MED 11/19/17 In Process (Protonix) 09:00 Prednisone (Deltasone) MED 11/18/17 In Process 21:00 Vital Signs Date Time Temp Pulse Resp B/P (MAP) Pulse Ox O2 Delivery O2 Flow Rate FiO2 11/19/17 08:00 95.9 69 20 127/59 (81) 95 11/19/17 03:34 98.1 68 18 138/64 (88) 95 11/18/17 23:39 98.5 71 18 126/58 (80) 97 11/18/17 22:54 95 Nasal Cannula 2.00 11/18/17 20:02 98.2 78 18 139/66 (90) 86 11/18/17 16:49 98.2 80 18 138/65 (89) 95 11/18/17 12:32 98.2 68 20 100/67 (78) 95 11/18/17 08:16 11/18/17 07:17 78 17 137/57 (83) 97 Nasal Cannula 4.00 11/18/17 06:38 83 20 138/63 (88) 96 Nasal Cannula 4.00 11/18/17 03:14 22 95 Nasal Cannula 2.00 11/18/17 03:05 98.5 83 20 122/69 (86) 94 Imaging Last 72 hours Impressions Abdomen X-Ray 11/19/17 0700 Signed Impressions: Service Date/Time: Sunday, November 19, 2017 07:39 - CONCLUSION: 1. Improved bowel gas pattern in this patient with partial small bowel obstruction on CT exam. Robin Jackson MD Chest X-Ray 11/18/17311 Signed Impressions: Service Date/Time: Saturday, November 18, 2017 03:22 - CONCLUSION: No acute disease. Eliceo Frances MD Abdomen/Pelvis CT 11/18/17311 Signed Impressions: Service Date/Time: Saturday, November 18, 2017 05:07 - CONCLUSION: 1. Dilated proximal and mid small bowel with a elongated area of transition in the right lower quadrant to decompressed distal small bowel. Some degree of obstruction at this levelsuspected. 2. Right lower lobe consolidation or atelectasis. 3. Nonobstructing 4 mm left renal stone. 4. Chronic bony changes as described above. Eliceo Frances MD Objective Remarks GENERAL: Wn/WD pleasant obese man in no acute distress. SKIN: diffuse macular rash on upper extremities and trunk HEAD: Atraumatic. Normocephalic. EYES: Pupils equal and round. No scleral icterus. No injection or drainage. ENT: No nasal bleeding or discharge. Mucous membranes pink and moist. NECK: Trachea midline. No JVD. CARDIOVASCULAR: Regular rate and rhythm. RESPIRATORY: Decreased breath sounds bilaterally. Crackles heard L > R GASTROINTESTINAL: Abdomen soft, diffuse tenderness, mainly in epigastric area. guarding in epigastric area MUSCULOSKELETAL: Extremities without clubbing, cyanosis, or edema. No obvious deformities. NEUROLOGICAL: Awake and alert. No obvious cranial nerve deficits. Motor grossly within normal limits. Five out of 5 muscle strength in the arms and legs. Normal speech. PSYCHIATRIC: Appropriate mood and affect; insight and judgment normal. Medications and IVs Current Medications Medications (Trade) Dose Ordered Sig/Daniel Route Start Time Stop Time Status Last Admin (Symbicort 160-4.5 Mcg Inh) 2 puff Q12HR INH 11/18/17 09:00 (Duoneb Neb) 1 ampule Q4HR NEB PRN NEB 11/18/17 06:30 Levofloxacin/ Dextrose 150 ml @ 100 mls/hr DAILY@0600 IV 11/18/17 06:30 11/19/17 05:56 Sodium Chloride 1,000 ml @ 100 mls/hr Q10H IV 11/18/17 06:17 11/19/17 05:56 (NS Flush) 2 ml UNSCH PRN IV FLUSH 11/18/17 06:30 (NS Flush) 2 ml BID IV FLUSH 11/18/17 09:00 11/18/17 21:12 (Zofran Inj) 4 mg Q6H PRN IVP 11/18/17 06:30 11/18/17 22:53 (Morphine Inj) 1 mg Q3H PRN IV PUSH 11/18/17 06:30 (Morphine Inj) 2 mg Q3H PRN IV PUSH 11/18/17 06:30 11/18/17 22:52 (Alyx-Colace) 1 tab BID PO 11/18/17 09:00 (Milk Of Magnesia Liq) 30 ml Q12H PRN PO 11/18/17 06:30 (Senokot) 17.2 mg Q12H PRN PO 11/18/17 06:30 (Dulcolax Supp) 10 mg DAILY PRN RECTAL 11/18/17 06:30 (Lactulose Liq) 30 ml DAILY PRN PO 11/18/17 06:30 (Norvasc) 10 mg DAILY PO 11/19/17 09:00 (Lipitor) 40 mg HS PO 11/18/17 21:00 (PROzac) 20 mg BID PO 11/18/17 21:00 (Neurontin) 1,600 mg DAILY PO 11/19/17 09:00 (Neurontin) 800 mg HS PO 11/18/17 21:00 (Flomax) 0.4 mg HS PO 11/18/17 21:00 Patient Own Medication PT OWN MED: (Fluorouracil Topical... BID TOPICAL 11/18/17 21:00 (Prinivil) 40 mg DAILY PO 11/19/17 09:00 (Protonix) 20 mg DAILY PO 11/19/17 09:00 (Deltasone) 20 mg BID PO 11/18/17 21:00 A/P Assessment and Plan Abdominal pain Small Bowel Obstruction - KUB today revealed improved bowel status compared to CT yesterday. Patient also reports flatus. Still no bowel movement however. Abdomen was also tender in epigastric area - Will continue bowel regiment as surgery deemed that surgical intervention not necessary. - Will discontinue morphine for pain and switch to non-opioid pain management to help with bowel. Rash - Macular rash on extremeties and trunk. Per patient seems to be improving with steroids. Will continue steroid taper and f/u with derm outpatient Community Acquired Pneumonia - Leukocytosis is improving. Patient denies any difficulty breathing or cough. However new crackles heard on exam, unsure if this is new - Will continue empiric IV levaquin. Will transition to PO once small bowel obstruction is resolved - If patient decompensates, consider sputum culture to modify abx treatment - CXR tomorrow to check if infiltrate improves COPD - denies any wheezing. Satting 95% at 2 L NC. Denies home oxygen use. Possibly due to CAP/atelectasis. - Continue O2 and wean off when possible. continue PRN duonebs and home management. Mononeuropathy - Numbness in bilateral extremites. Most likely 2/2 chronic alcohol abuse. Continue home management of gabapentin Depression/Anxiety - Co ntinue home management of prozac Tom Merino M3 Nov 19, 2017 10:15
[2017-11-19 12:00] VITALS: BP 150/70; PULSE 66; RESP 20; TEMP 95.9; O2SAT 97
[2017-11-19] MEDS: predniSONE 20 MG TAB PO SCH ×2 (12:16→22:23)
[2017-11-19] MEDS: FLUoxetine HCL 20 MG CAP PO SCH ×2 (12:16→22:23)
[2017-11-19] MEDS: DOCUSATE SODIUM 50 MG/SENNA 8.6 MG TAB PO SCH ×2 (12:17→22:22)
[2017-11-19] MEDS: PANTOPRAZOLE SOD 20 MG DELAYED RELEASE TAB PO SCH (12:17)
[2017-11-19] MEDS: BUDESONIDE-FORMOTEROL 160/4.5 MCG INHALER INH SCH ×2 (12:17→22:21)
[2017-11-19] MEDS: LISINOPRIL 20 MG TAB PO SCH (12:17)
[2017-11-19] MEDS: GABAPENTIN 400 MG CAP PO SCH ×2 (12:46→22:23)
[2017-11-19 16:00] VITALS: BP 141/65; PULSE 62; RESP 20; TEMP 96.1; O2SAT 93
--- NOTE | 2017-11-19 16:01 | HHI.PR ---
cc: Eduardo Mccullough MD Subjective Subjective Notes Resting in bed Feeling much better than yesterday Objective Vitals/I&O Vital Signs Date Time Temp Pulse Resp B/P (MAP) Pulse Ox O2 Delivery O2 Flow Rate FiO2 11/19/17 12:00 95.9 66 20 150/70 (96) 97 11/18/17 22:54 Nasal Cannula 2.00 Labs Laboratory Tests Test 11/19/17 04:06 White Blood Count 11.3 Red Blood Count 4.33 Hemoglobin 13.6 Hematocrit 40.4 Mean Corpuscular Volume 93.3 Mean Corpuscular Hemoglobin 31.3 Mean Corpuscular Hemoglobin Concent 33.6 Red Cell Distribution Width 13.9 Platelet Count 210 Mean Platelet Volume 8.3 Neutrophils (%) (Auto) 82.5 Lymphocytes (%) (Auto) 8.0 Monocytes (%) (Auto) 9.3 Eosinophils (%) (Auto) 0.0 Basophils (%) (Auto) 0.2 Neutrophils # (Auto) 9.3 Lymphocytes # (Auto) 0.9 Monocytes # (Auto) 1.1 Eosinophils # (Auto) 0.0 Basophils # (Auto) 0.0 CBC Comment DIFF FINAL Differential Comment Blood Urea Nitrogen 29 Creatinine 1.12 Random Glucose 100 Total Protein 6.4 Albumin 3.1 Calcium Level 8.4 Alkaline Phosphatase 85 Aspartate Amino Transf (AST/SGOT) 16 Alanine Aminotransferase (ALT/SGPT) 25 Total Bilirubin 0.4 Sodium Level 145 Potassium Level 4.2 Chloride Level 110 Carbon Dioxide Level 28.5 Anion Gap 7 Estimat Glomerular Filtration Rate 64 Cardiovascular: Regular Lungs: Clear Abdomen: Non-tender, Other (minimally distended) Extremities: No edema A/P Assessment and Plan 77 year old male with SBO -KUB improved from today -+flatus; no BM -Will start sips of clear liquids -Will continue non operative management for now Attending Statement patient seen at bedside having bowel fxn continue non operative mgnt Attestation The exam, history, and the medical decision-making described in the above note were completed with the assistance of the mid-level provider. I reviewed and agree with the findings presented. I attest that I had a [id number] encounter with the patient on the same day, and personally performed and documented my assessment and findings in the medical record. Aye Carpio Nov 19, 2017 16:01 Eduardo Mccullough MD Nov 21, 2017 13:29
--- NOTE | 2017-11-19 18:09 | HHI.PR ---
Subjective Remarks Abdominal pain improved. Denies nausea or vomiting Passing gas Objective Vitals Vital Signs Date Time Temp Pulse Resp B/P (MAP) Pulse Ox O2 Delivery O2 Flow Rate FiO2 11/19/17 16:00 96.1 62 20 141/65 (90) 93 11/19/17 12:00 95.9 66 20 150/70 (96) 97 11/19/17 08:00 95.9 69 20 127/59 (81) 95 11/19/17 03:34 98.1 68 18 138/64 (88) 95 11/18/17 23:39 98.5 71 18 126/58 (80) 97 11/18/17 22:54 95 Nasal Cannula 2.00 11/18/17 20:02 98.2 78 18 139/66 (90) 86 I/O 11/18/17 11/18/17 11/18/17 11/19/17 11/19/17 11/19/17 07:00 15:00 23:00 07:00 15:00 23:00 Intake Total 120 ml Output Total 250 ml 800 ml 325 ml Balance -130 ml -800 ml -325 ml Intake IV Total 120 ml Output Urine Total 250 ml 800 ml 325 ml # Voids 0 Result Diagram: 11/19/17 0406 11/19/17 0406 Imaging Last Impressions Abdomen X-Ray 11/19/17 07 Signed Impressions: Service Date/Time: Sunday, November 19, 2017 07:39 - CONCLUSION: 1. Improved bowel gas pattern in this patient with partial small bowel obstruction on CT exam. Robin Jackson MD Chest X-Ray 11/18/17311 Signed Impressions: Service Date/Time: Saturday, November 18, 2017 03:22 - CONCLUSION: No acute disease. Eliceo Frances MD Abdomen/Pelvis CT 11/18/17311 Signed Impressions: Service Date/Time: Saturday, November 18, 2017 05:07 - CONCLUSION: 1. Dilated proximal and mid small bowel with a elongated area of transition in the right lower quadrant to decompressed distal small bowel. Some degree of obstruction at this levelsuspected. 2. Right lower lobe consolidation or atelectasis. 3. Nonobstructing 4 mm left renal stone. 4. Chronic bony changes as described above. Eliceo Frances MD Objective Remarks GENERAL: This is a well-nourished, well-developed patient, in no apparent distress. SKIN: ecchymoses or lesions. Cool and dry. There is a macular rash in the upper extremities and trunk and upper part of bilateral lower extremities. There is also a erythematous scaly rash in the patient's face. Patient also has an erythematous rash on BL feet above the ankle and in the dorsal part of BL foot. HEAD: Atraumatic. Normocephalic. No temporal or scalp tenderness. EYES: Pupils equal round and reactive. Extraocular motions intact. No scleral icterus. No injection or drainage. ENT: Nose without bleeding, purulent drainage or septal hematoma. Throat without erythema, tonsillar hypertrophy or exudate. Uvula midline. Airway patent. NECK: Trachea midline. No JVD or lymphadenopathy. Supple, nontender, no meningeal signs. CARDIOVASCULAR: Regular rate and rhythm without murmurs, gallops, or rubs. RESPIRATORY: Clear to auscultation. Breath sounds equal bilaterally. No wheezes , rales, or rhonchi. GASTROINTESTINAL: Abdomen soft, mildly tender to palpation on the upper abdomen involving the right upper quadrant, epigastrium and left upper quadrant., Ali distended. No hepato-splenomegaly, or palpable masses. No guarding. MUSCULOSKELETAL: Extremities without clubbing, cyanosis, or edema. No joint tenderness, effusion, or edema noted. No calf tenderness. Negative Homans sign bilaterally. NEUROLOGICAL: Awake and alert. Cranial nerves II through XII intact. Motor and sensory grossly within normal limits. Five out of 5 muscle strength in all muscle groups. Normal speech. Medications and IVs Current Medications Medications (Trade) Dose Ordered Sig/Daniel Route Start Time Stop Time Status Last Admin (Symbicort 160-4.5 Mcg Inh) 2 puff Q12HR INH 11/18/17 09:00 11/19/17 12:17 (Duoneb Neb) 1 ampule Q4HR NEB PRN NEB 11/18/17 06:30 Levofloxacin/ Dextrose 150 ml @ 100 mls/hr DAILY@0600 IV 11/18/17 06:30 11/19/17 05:56 Sodium Chloride 1,000 ml @ 100 mls/hr Q10H IV 11/18/17 06:17 11/19/17 05:56 (NS Flush) 2 ml UNSCH PRN IV FLUSH 1/28/18 06:30 (NS Flush) 2 ml BID IV FLUSH 11/18/17 09:00 11/18/17 21:12 (Zofran Inj) 4 mg Q6H PRN IVP 11/18/17 06:30 11/18/17 22:53 (Morphine Inj) 1 mg Q3H PRN IV PUSH 11/18/17 06:30 (Morphine Inj) 2 mg Q3H PRN IV PUSH 11/18/17 06:30 11/18/17 22:52 (Alyx-Colace) 1 tab BID PO 11/18/17 09:00 11/19/17 12:17 (Milk Of Magnesia Liq) 30 ml Q12H PRN PO 11/18/17 06:30 (Senokot) 17.2 mg Q12H PRN PO 11/18/17 06:30 (Dulcolax Supp) 10 mg DAILY PRN RECTAL 11/18/17 06:30 (Lactulose Liq) 30 ml DAILY PRN PO 11/18/17 06:30 (Norvasc) 10 mg DAILY PO 11/19/17 09:00 11/19/17 12:16 (Lipitor) 40 mg HS PO 11/18/17 21:00 (PROzac) 20 mg BID PO 11/18/17 21:00 11/19/17 12:16 (Neurontin) 800 mg HS PO 11/18/17 21:00 (Flomax) 0.4 mg HS PO 11/18/17 21:00 Patient Own Medication PT OWN MED: (Fluorouracil Topical... BID TOPICAL 11/18/17 21:00 (Prinivil) 40 mg DAILY PO 11/19/17 09:00 11/19/17 12:17 (Protonix) 20 mg DAILY PO 11/19/17 09:00 11/19/17 12:17 (Deltasone) 20 mg BID PO 11/18/17 21:00 11/19/17 12:16 (Neurontin) 400 mg DAILY PO 11/19/17 12:45 11/19/17 12:46 A/P Problem List: (1) Abdominal pain ICD Code: R10.9 - Unspecified abdominal pain Status: Acute (2) Small bowel obstruction ICD Code: K56.609 - Unspecified intestinal obstruction, unspecified as to partial versus complete obstruction Status: Acute (3) Rash ICD Code: R21 - Rash and other nonspecific skin eruption Status: Acute (4) Community acquired pneumonia ICD Code: J18.9 - Pneumonia, unspecified organism (5) COPD (chronic obstructive pulmonary disease) ICD Code: J44.9 - Chronic obstructive pulmonary disease, unspecified (6) HTN (hypertension) ICD Code: I10 - Essential (primary) hypertension (7) Neuropathy, 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 Consult percent cream apply to the face once daily. Monitor for response. (10) CASA (acute kidney injury) ICD Code: N17.9 - Acute kidney failure, unspecified Plan: Creatinine on admission 1.39, trended down to 1.12. Assessment and Plan (1) Abdominal pain Plan: Admit the patient to the medical floor, continue pain control with IV morphine. Surgery consult pending. The bowel regimen Diet as per surgery. 11/19 Appreciate surgery consultation. Patient advanced to clear liquid diet. Management as per GS. (2) Small bowel obstruction Plan: DT abdomen and pelvis showed dilated proximal and mid small bowel with elongated area of transition in the right lower quadrant to the compressed distal small bowel. Some degree of obstruction at this level suspected. There was also from a right lower lobe consolidation or atelectasis. Obstructing 4 mm renal stone the left. Chronic bony changes. Continue pain control as above Continue bowel regimen. (3) Rash Plan: Rash in the face likely seven-day to seborrheic dermatitis. Will prescribe a corticosteroid cream. Rash in the upper extremities and trunk as well as lower extremities seems to be allergic in nature. The patient states that recently he moved to an assisted living facility so he is getting different foot than what he used to get. Denies any new medications. She was given IV Solu-Medrol and Benadryl in the ER. I will start the patient a prednisone taper and also prescribed Benadryl as needed for itching. (4) Community acquired pneumonia Plan: Chest x-ray without any acute disease - reviewed by me. The abdomen and pelvis showed a right lower lobe consolidation. Given the patient has history of COPD, shortness of breath as well as leukocytosis I will treat empirically with IV Levaquin. 11/19 Continue IV Levaquin. Leukocytosis trending down. (5) COPD (chronic obstructive pulmonary disease) Plan: There is no wheezing on exam. Seems to be stable. Mary Symbicort. Place on DuoNeb treatments. (6) HTN (hypertension) Plan: Blood pressure seems to be stable, continue amlodipine and lisinopril. (7) Neuropathy, alcoholic Plan: She complains of numbness in bilateral extremities. This likely secondary to alcoholic neuropathy since the patient has history of alcohol abuse. I will continue gabapentin. (8) Depression Plan: Seems stable. Continue Fluoxetine. DVT prophylaxis - SCD's, heparin SQ PPI prophylaxis: PPI Discharge Planning Continue to monitor in the medical floor. Problem Qualifiers (1) Abdominal pain: Qualified Codes: R10.84 - Generalized abdominal pain (2) COPD (chronic obstructive pulmonary disease): Qualified Codes: J41.0 - Simple chronic bronchitis (3) HTN (hypertension): Qualified Codes: I10 - Essential (primary) hypertension (4) Depression: Qualified Codes: F32.9 - Major depressive disorder, single episode, unspecified Wesley Almazan MD Nov 19, 2017 18:09
[2017-11-19 20:35] VITALS: BP 158/78; PULSE 80; RESP 18; TEMP 98.1; O2SAT 97
[2017-11-19] MEDS: KETOCONAZOLE 2% CREAM 15 GM TOPICAL SCH (22:21)
[2017-11-19] MEDS: FLUOCINOLONE ACETONIDE 0.01% CR 15 GM TUBE TOPICAL SCH (22:21)
[2017-11-19] MEDS: ATORVASTATIN 40 MG TAB PO SCH (22:22)
[2017-11-19] MEDS: TAMSULOSIN HCL 0.4 MG CAP PO SCH (22:23)
[2017-11-19 23:07] VITALS: BP 143/78; PULSE 78; RESP 18; TEMP 98.7; O2SAT 97
[2017-11-20 04:00] VITALS: BP 153/66; PULSE 62; RESP 18; TEMP 98; O2SAT 90
[2017-11-20] MEDS: LEVOFLOXACIN 750 MG PREMIX INJ 150 ML IV SCH (06:10)
[2017-11-20 08:00] VITALS: BP 116/57; PULSE 63; RESP 20; TEMP 95.6; O2SAT 92
[2017-11-20] MEDS: FLUOROURACIL TOPICAL SCH (09:00)
[2017-11-20] MEDS: SODIUM CHLORIDE 0.9% FLUSH 10 ML FLUSH IV FLUSH SCH (09:00)
--- NOTE | 2017-11-20 10:20 | RADRPT ---
EXAM DATE/TIME: 11/20/2017 10:08 [facility] COMPARISON: CT ABDOMEN & PELVIS W CONTRAST, November 18, 2017, 5:07. ABDOMEN KUB ONLY, November 19, 2017, 7:39. INDICATIONS : Follow up small bowel obstruction. MEDICAL HISTORY : Chronic obstructive pulmonary disease. Hypertension. SURGICAL HISTORY : None. ENCOUNTER: Subsequent ACUITY: 2 days PAIN SCORE: 4/10 LOCATION: abdomen. FINDINGS: Supine view of the abdomen was performed. The abdominal bowel gas pattern is normal. Radiographicall y there is no evidence of small bowel obstruction. No abnormal masses, calcifications, or organomega ly is seen. The osseous structures are unremarkable. CONCLUSION: No evidence of small bowel obstruction. Benign. Tino Han MD on November 20, 2017 at 10:15 Board Certified Radiologist. This report was verified electronically.
[2017-11-20] MEDS: KETOCONAZOLE 2% CREAM 15 GM TOPICAL SCH (10:24)
[2017-11-20] MEDS: BUDESONIDE-FORMOTEROL 160/4.5 MCG INHALER INH SCH (10:25)
[2017-11-20] MEDS: FLUOCINOLONE ACETONIDE 0.01% CR 15 GM TUBE TOPICAL SCH (10:25)
[2017-11-20] MEDS: predniSONE 20 MG TAB PO SCH (10:26)
[2017-11-20] MEDS: DOCUSATE SODIUM 50 MG/SENNA 8.6 MG TAB PO SCH (10:26)
[2017-11-20] MEDS: PANTOPRAZOLE SOD 20 MG DELAYED RELEASE TAB PO SCH (10:26)
[2017-11-20] MEDS: GABAPENTIN 400 MG CAP PO SCH (10:26)
[2017-11-20] MEDS: FLUoxetine HCL 20 MG CAP PO SCH (10:26)
[2017-11-20] MEDS: LISINOPRIL 20 MG TAB PO SCH (10:27)
[2017-11-20] MEDS: SODIUM CHLOR 0.9% 1000 ML INJ 1,000 ML IV SCH (10:29)
--- NOTE | 2017-11-20 11:19 | HHI.PR ---
Subjective Remarks Follow-up visit abdominal pain, SBO, COPD. Patient seen and examined today lying in bed. Reports he is doing a lot better. States he is passing gas. States he had small amounts of bowel movement this morning. States is still hard with some tenderness on his abdomen. Denies any nausea, vomiting. Denies any fevers, chills. Reports he is not short of breath but they kept his O2 nasal cannula 2 L because when they checked his O2 saturation is on the low side. States that he has used inhalers in the past which is albuterol only with short of breath. However when he was seen by pool manager and did some testing he reports that the pool manager deemed that he does not need any inhalers. He has not used an inhaler for more than a year now. Reports previous history of smoking and quit in 2011. Objective Vitals Vital Signs Date Time Temp Pulse Resp B/P (MAP) Pulse Ox O2 Delivery O2 Flow Rate FiO2 11/20/17 08:00 95.6 63 20 116/57 (76) 92 11/20/17 04:00 98.0 62 18 153/66 (95) 90 11/20/17 00:12 Nasal Cannula 2.00 11/19/17 23:07 98.7 78 18 143/78 (99) 97 11/19/17 20:35 98.1 80 18 158/78 (104) 97 11/19/17 16:00 96.1 62 20 141/65 (90) 93 11/19/17 12:00 95.9 66 20 150/70 (96) 97 I/O 11/19/17 11/19/17 11/19/17 11/20/17 11/20/17 11/20/17 07:00 15:00 23:00 07:00 15:00 23:00 Intake Total 950 ml 150 ml Output Total 325 ml 400 ml Balance -325 ml 550 ml 150 ml Intake Oral 200 ml IV Total 750 ml 150 ml Output Urine Total 325 ml 400 ml Result Diagram: 11/19/17 0406 11/19/17 0406 Imaging Last Impressions Abdomen X-Ray 11/20/17 0000 Signed Impressions: Service Date/Time: Monday, November 20, 2017 10:08 - CONCLUSION: No evidence of small bowel obstruction. Benign. Tino Han MD Chest X-Ray 1/28/18 0312 Signed Impressions: Service Date/Time: Saturday, November 18, 2017 03:22 - CONCLUSION: No acute disease. Eliceo Frances MD Abdomen/Pelvis CT 11/18/17311 Signed Impressions: Service Date/Time: Saturday, November 18, 2017 05:07 - CONCLUSION: 1. Dilated proximal and mid small bowel with a elongated area of transition in the right lower quadrant to decompressed distal small bowel. Some degree of obstruction at this levelsuspected. 2. Right lower lobe consolidation or atelectasis. 3. Nonobstructing 4 mm left renal stone. 4. Chronic bony changes as described above. Eliceo Frances MD Objective Remarks GENERAL: This is a well-nourished, well-developed patient, in no apparent distress. SKIN: Warm and dry. Multiple eczematous rash bilateral lower extremity, facial , bilateral upper extremity. HEENT: Normocephalic. Pupils equal round and reactive. Nose without bleeding. Airway patent. NECK: Trachea midline. CARDIOVASCULAR: Regular rate and rhythm without murmurs, gallops, or rubs. RESPIRATORY: Clear to auscultation. Breath sounds equal bilaterally. No wheezes , rales, or rhonchi. GASTROINTESTINAL: Abdomen soft,nondistended. Bowel Sounds hypoactive. Mild tenderness to palpation. MUSCULOSKELETAL: Extremities without clubbing, cyanosis, or edema. NEUROLOGICAL: Awake and alert. Oriented to time, place, person. No focal neuro deficit. Moves all extremities. Normal speech. A/P Problem List: (1) Abdominal pain ICD Code: R10.9 - Unspecified abdominal pain Status: Acute (2) Small bowel obstruction ICD Code: K56.609 - Unspecified intestinal obstruction, unspecified as to partial versus complete obstruction Status: Acute (3) Rash ICD Code: R21 - Rash and other nonspecific skin eruption Status: Acute (4) Community acquired pneumonia ICD Code: J18.9 - Pneumonia, unspecified organism (5) COPD (chronic obstructive pulmonary disease) ICD Code: J44.9 - Chronic obstructive pulmonary disease, unspecified (6) HTN (hypertension) ICD Code: I10 - Essential (primary) hypertension (7) Neuropathy, 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 Abdominal pain, small bowel obstruction acute - CT of the abdomen showed dilated proximal and mid small bowel with elongated area of transition in the right lower quadrant to the compressed distal small bowel. Some degree of obstruction at this level suspected. There was also a right lower lobe consolidation or atelectasis. Nonobstructing 4 mm left renal stone. 4. Chronic bony changes as described - Abdominal x-ray 11/19/17 showed improved bowel gas pattern in this patient with partial small bowel obstruction on CT exam - Repeat abdominal x-ray 11/20/17 showed no evidence of small bowel obstruction. Benign. - DC clear liquids, advance diet to regular as tolerated. DC IV fluids. Out of bed to chair ambulation encouraged. - Had small BMs this morning. MiraLAX daily. Senokot daily. Discussed with patient extensively importance of taking high fiber. Explained extensively results of CT abdomen. - If tolerating diet for noontime Will DC home this afternoon. This has been also discussed with patient. Suspect pneumonia COPD - Patient was started on Levaquin IV. We'll switch over to by mouth Levaquin 5 more days - Continue with prednisone twice a day 5 more days - Symbicort twice a day, albuterol - Monitor respiratory status off 2 L nasal cannula. If patient desaturates may need home O2 will order walk test. HTN - Continue amlodipine and lisinopril - Monitor BP trend Neuropathy - Continue gabapentin Depression - Continue fluoxetine DVT prop subcutaneous heparin Discuss with patient, nursing Discharge Planning If tolerating by mouth regular diet. May DC home today. Follow-up with PCP. Problem Qualifiers (1) Abdominal pain: Qualified Codes: R10.84 - Generalized abdominal pain (2) COPD (chronic obstructive pulmonary disease): Qualified Codes: J41.0 - Simple chronic bronchitis (3) HTN (hypertension): Qualified Codes: I10 - Essential (primary) hypertension (4) Depression: Qualified Codes: F32.9 - Major depressive disorder, single episode, unspecified Jean Meredith Nov 20, 2017 11:19
[2017-11-20] MEDS ORDERED: Budeson-Formot 160-4.5 Mcg Inh INH (11:26)
[2017-11-20] MEDS ORDERED: Ketoconazole 2% Cream TOPICAL (11:26)
[2017-11-20] MEDS ORDERED: PERI PO (11:26)
[2017-11-20] MEDS ORDERED: FLUO0.013 TOPICAL (11:26)
[2017-11-20] MEDS ORDERED: PRED20 PO (11:26)
[2017-11-20] MEDS ORDERED: POLYETHYLENE GLYCOL 17 GM PKG PO SCH (11:30)
[2017-11-20 12:00] VITALS: BP 144/70; PULSE 66; RESP 20; TEMP 96.1; O2SAT 93
--- NOTE | 2017-11-20 15:00 | HHI.PR ---
cc: Eduardo Mccullough MD Subjective Subjective Notes Feeling much better today Tolerated lunch without issues Had small BM this AM Objective Vitals/I&O Vital Signs Date Time Temp Pulse Resp B/P (MAP) Pulse Ox O2 Delivery O2 Flow Rate FiO2 11/20/17 12:00 96.1 66 20 144/70 (94) 93 11/20/17 00:12 Nasal Cannula 2.00 Cardiovascular: Regular Lungs: Clear Abdomen: Non-distended, Non-tender Extremities: No edema A/P Assessment and Plan 77 year old male with SBO -KUB much improved today -+flatus; + BM -Tolerated lunch -If no issues with diet can plan to DC this evening -Will continue non operative management for now Aye Carpio Nov 20, 2017 15:00
[2017-11-20 16:00] VITALS: BP 145/66; PULSE 69; RESP 20; TEMP 97; O2SAT 91
[2017-11-20] MEDS ORDERED: LEVA750T9 PO (16:57)
--- NOTE | 2017-11-20 17:29 | HHI.DS ---
Discharge Summary Admission Date Nov 18, 2017 at 6:17 am Discharge Date: Nov 20, 2017 Admitting Diagnosis small bowel obstruction PNA (1) Abdominal pain ICD Code: R10.9 - Unspecified abdominal pain Diagnosis: Principal Status: Acute (2) Small bowel obstruction ICD Code: K56.609 - Unspecified intestinal obstruction, unspecified as to partial versus complete obstruction Diagnosis: Principal Status: Acute (3) Rash ICD Code: R21 - Rash and other nonspecific skin eruption Status: Acute (4) Community acquired pneumonia ICD Code: J18.9 - Pneumonia, unspecified organism Diagnosis: Principal (5) COPD (chronic obstructive pulmonary disease) ICD Code: J44.9 - Chronic obstructive pulmonary disease, unspecified Diagnosis: Principal (6) HTN (hypertension) ICD Code: I10 - Essential (primary) hypertension (7) Neuropathy, 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 The patient states that he felt nauseous but denies vomiting, denies fevers, chills. States that pain was constant and located in the upper abdomen , nonradiating. The patient also complains of a rash which started 3 days prior to his abdominal pain on the upper extremities and his trunk. Patient states the rash is very itchy. She also complains of some coughing and shortness of breath but he thinks this is due to the COPD. Please note that the patient is somewhat a poor historian. Pain at the moment is almost completely resolved. CBC/BMP: 11/19/17 0406 11/19/17 0406 Significant Findings Laboratory Tests Test 11/18/17 03:20 11/19/17 04:06 White Blood Count 13.7 TH/MM3 (4.0-11.0) 11.3 TH/MM3 (4.0-11.0) Neutrophils (%) (Auto) 83.3 % (16.0-70.0) 82.5 % (16.0-70.0) Lymphocytes (%) (Auto) 6.2 % (9.0-44.0) 8.0 % (9.0-44.0) Monocytes (%) (Auto) 8.6 % (0.0-8.0) 9.3 % (0.0-8.0) Neutrophils # (Auto) 11.4 TH/MM3 (1.8-7.7) 9.3 TH/MM3 (1.8-7.7) Lymphocytes # (Auto) 0.8 TH/MM3 (1.0-4.8) 0.9 TH/MM3 (1.0-4.8) Monocytes # (Auto) 1.2 TH/MM3 (0-0.9) 1.1 TH/MM3 (0-0.9) Blood Urea Nitrogen 29 MG/DL (7-18) 29 MG/DL (7-18) Creatinine 1.39 MG/DL (0.60-1.30) Random Glucose 115 MG/DL (74-106) Estimat Glomerular Filtration Rate 50 ML/MIN (>89) 64 ML/MIN (>89) Red Blood Count 4.33 MIL/MM3 (4.50-5.90) Albumin 3.1 GM/DL (3.4-5.0) Calcium Level 8.4 MG/DL (8.5-10.1) Chloride Level 110 MEQ/L (98-107) Imaging Last Impressions Abdomen X-Ray 11/20/17 0000 Signed Impressions: Service Date/Time: Monday, November 20, 2017 10:08 - CONCLUSION: No evidence of small bowel obstruction. Benign. Tino Han MD Chest X-Ray 11/18/17311 Signed Impressions: Service Date/Time: Saturday, November 18, 2017 03:22 - CONCLUSION: No acute disease. Eliceo Frances MD Abdomen/Pelvis CT 11/18/17311 Signed Impressions: Service Date/Time: Saturday, November 18, 2017 05:07 - CONCLUSION: 1. Dilated proximal and mid small bowel with a elongated area of transition in the right lower quadrant to decompressed distal small bowel. Some degree of obstruction at this levelsuspected. 2. Right lower lobe consolidation or atelectasis. 3. Nonobstructing 4 mm left renal stone. 4. Chronic bony changes as described above. Eliceo Frances MD PE at Discharge GENERAL: This is a well-nourished, well-developed patient, in no apparent distress. SKIN: Warm and dry. Multiple eczematous rash bilateral lower extremity, facial , bilateral upper extremity. HEENT: Normocephalic. Pupils equal round and reactive. Nose without bleeding. Airway patent. NECK: Trachea midline. CARDIOVASCULAR: Regular rate and rhythm without murmurs, gallops, or rubs. RESPIRATORY: Clear to auscultation. Breath sounds equal bilaterally. No wheezes , rales, or rhonchi. GASTROINTESTINAL: Abdomen soft,nondistended. Bowel Sounds hypoactive. Mild tenderness to palpation. MUSCULOSKELETAL: Extremities without clubbing, cyanosis, or edema. NEUROLOGICAL: Awake and alert. Oriented to time, place, person. No focal neuro deficit. Moves all extremities. Normal speech. Pt update on day of discharge Follow-up visit abdominal pain, SBO, COPD. Patient seen and examined today lying in bed. Reports he is doing a lot better. States he is passing gas. States he had small amounts of bowel movement this morning. States is still hard with some tenderness on his abdomen. Denies any nausea, vomiting. Denies any fevers, chills. Reports he is not short of breath but they kept his O2 nasal cannula 2 L because when they checked his O2 saturation is on the low side. States that he has used inhalers in the past which is albuterol only with short of breath. However when he was seen by tax lawyer and did some testing he reports that the tax lawyer deemed that he does not need any inhalers. He has not used an inhaler for more than a year now. Reports previous history of smoking and quit in 2011. Hospital Course Patient is a 77 year old male came in to the hospital for complaints of abdominal pain. CT of the abdomen showed dilated proximal and mid small bowel with elongated area of transition in the right lower quadrant to the compressed distal small bowel. Some degree of obstruction at this level suspected. There was also a right lower lobe consolidation or atelectasis. Nonobstructing 4 mm left renal stone. 4. Chronic bony changes as described. Patient was placed nothing by mouth and advance to clear liquids which he tolerated. Abdominal x- ray showed improved bowel gas pattern. Today he had small bowel movements repeat abdominal x-ray showed no evidence of small bowel obstruction. His diet was advanced to regular and he was able to tolerate it. He was also cleared by GI to be treated conservatively. Patient showed some right lower lobe consolidation or atelectasis on the CT scan started on Levaquin IV and we'll switch over to Levaquin by mouth 5 days. Switch over to prednisone twice a day 5 more days and continue on Symbicort and albuterol when necessary for now. Patient has been off of 2 L nasal cannula today and was able to tolerate activities without getting short of breath or dyspnea. Patient has improved significantly. Patient has met maximal benefits of hospitalization. Clinically stable for discharge. Pt Condition on Discharge: Good Discharge Disposition: Discharge Home Discharge Time: <= 30 minutes Discharge Instructions DIET: Follow Instructions for: Heart Healthy Diet Activities you can perform: Regular-No Restrictions Follow up Referrals: PCP Follow-up - 2 Weeks New Medications: Levofloxacin (Levaquin) 750 Mg Tablet 750 MG PO DAILY for Infection for 5 Days, #5 TAB 0 Refills Fluocinolone Acetonide (Fluocinolone Acetonide) 0.01 % Cream..g. 1 APPLIC TOPICAL DAILY for Rash, #1 TUBE Prednisone (Prednisone) 20 Mg Tab 20 MG PO BID for COPD for 5 Days, #10 TAB Sennosides-Docusate Sodium (Gnp Senna Plus 8.6-50 mg) 8.6 Mg-50 Mg Tab 1 TAB PO BID for Constipation for 30 Days, #60 TAB [Budeson-Formot 160-4.5 Mcg Inh] () 60 PUFF AERO 2 PUFF INH Q12HR for 30 Days, #1 INHALER [Ketoconazole 2% Cream] () 15 APPLIC/15 GM CR 1 APPLIC TOPICAL DAILY for Rash, #1 TUBE Continued Medications: Amlodipine (Amlodipine) 10 Mg Tab 10 MG PO DAILY for Blood Pressure Management, #30 TAB 0 Refills Atorvastatin (Atorvastatin) 40 Mg Tab 40 MG PO HS for Cholesterol Management, #30 TAB 0 Refills Fluoxetine (Fluoxetine) 20 Mg Tab 20 MG PO BID, #30 TAB 0 Refills Gabapentin (Gabapentin) 400 Mg Cap 400 CAP PO DAILY, #30 CAP 0 Refills Gabapentin (Gabapentin) 800 Mg Tab 800 MG PO HS, #90 TAB 0 Refills Ipratropium-Albuterol Inh (Combivent Respimat Inh) 20-100 Halfway/Act Aero 1 PUFF INH QID for Asthma Management, #1 INHALER 0 Refills Lisinopril (Lisinopril) 40 Mg Tab 40 MG PO DAILY for Blood Pressure Management, #30 TAB 0 Refills Meloxicam (Meloxicam) 15 Mg Tab 15 MG PO DAILY for Arthritis Pain, #30 TAB 0 Refills Omeprazole (Omeprazole) 20 Mg Tab 20 MG PO DAILY, #30 TAB 0 Refills Tamsulosin (Tamsulosin) 0.4 Mg Cap 0.4 MG PO HS for Manage Prostate Problems, #30 CAP 0 Refills Jean Meredith Nov 20, 2017 17:29
[2017-11-21] MEDS ORDERED: LEVOFLOXACIN 500 MG TAB PO SCH (08:00)
== END 2017-11-20 18:01 | disposition home or self-care (01) | DRG 388 ==
LOC: NEPC 02:57 → NEDA 05:57 → OBSVTOIN 06:17 → NEPGCP 08:00
PROVIDERS: ADMIT Hospitalist; ATTEND Hospitalist
DX: K56.690 Other partial intestinal obstruction (principal); J18.9 Pneumonia, unspecified organism; N17.9 Acute kidney failure, unspecified; J44.0 Chronic obstructive pulmonary disease with (acute) lower respiratory infection; J98.11 Atelectasis; G62.1 Alcoholic polyneuropathy; I10 Essential (primary) hypertension; N40.0 Benign prostatic hyperplasia without lower urinary tract symptoms; L21.9 Seborrheic dermatitis, unspecified; G58.9 Mononeuropathy, unspecified; E78.5 Hyperlipidemia, unspecified; N20.0 Calculus of kidney; I25.10 Atherosclerotic heart disease of native coronary artery without angina pectoris; F32.9 Major depressive disorder, single episode, unspecified; F41.9 Anxiety disorder, unspecified; Z87.891 Personal history of nicotine dependence; Z88.1 Allergy status to other antibiotic agents
CPT/HCPCS: 71045; 74018; 74177; 80053; 83690; 85025; 93005; J1200; J1956; J2270; J2405; J2930; J7030; J7512; Q9967